=== PATIENT | male | born 1935 | race Caucasian/White ===

== ENCOUNTER → 2016-10-31 | Outpatient (CLI) | payer MEDICARE, OTHER ==
[~2016-10-31] MED LIST: EZET10TA2 PO; HYDR-2551 PO; LEVO125T6 PO; LISI40TA PO; POTA10IN PO; SIMV-13 PO; TADA5TAB11 PO; TAMS0.4C36 PO; VER240ST PO
== END | disposition home or self-care (01) ==
LOC: Rad HDHVI 09:42
PROVIDERS: ATTEND Internal Medicine Cardiovascular Disease
DX: M47.897 Other spondylosis, lumbosacral region (principal); M47.896 Other spondylosis, lumbar region; M48.06 Spinal stenosis, lumbar region
CPT/HCPCS: 72131

== ENCOUNTER → 2017-11-04 | Outpatient (CLI) | payer MEDICARE, OTHER ==
[~2017-11-04] MED LIST changes: -EZET10TA2 PO; +EZET10TA6 PO; +IOHEXOL 350 MG/ML 100ML IJ ONE; -LEVO125T6 PO; +LEVO125T7 PO
[2017-11-04 10:05] VITALS: BP 157/82
[2017-11-04 10:52] VITALS: BP 155/79
[2017-11-04 12:11] LABS: Basophils # (auto) 0 uL; Basophils % (auto) 0.8 % (0.0-2.0); Eosinophils # (auto) 0.1 uL; Eosinophils % (auto) 1.2 % (0.0-7.0); Hematocrit 41.9 % (41.0-53.0); Hemoglobin 13.5 g/dL (13.5-17.5); Lymphocytes # (auto) 1.6 uL; Lymphocytes % (auto) 36.6 % (10.0-50.0); Mean Corpuscular Hemoglobin 27.9 pg (28.0-32.0); Mean Corpuscular Hgb Conc. 32.2 g/dL (32.0-36.0); Mean Corpuscular Volume 86.7 fL (80.0-100.0); Monocytes # (auto) 0.7 uL; Neutrophils % (auto) 46.4 % (37.0-80.0); Nucleated Red Blood Cells % 0.8 %; Platelet Count (auto) 198 10^3/uL (140-450); Red Blood Cells 4.83 10^6/uL (4.5-5.90); White Blood Cell 4.4 10^3/uL (4.4-10.8)
[2017-11-04 12:21] LABS: Potassium 3.4 mmol/L (3.5-5.1); Urine Blood Negative /uL (Negative); Urine Specific Gravity 1.044 (1.001-1.035)
[2017-11-04 12:22] LABS: Albumin 4.1 g/dL (3.4-5.0); BUN/Creatinine Ratio 10.7; Bilirubin, Direct 0.2 mg/dL (0-0.2); Bilirubin, Total 1.1 mg/dL (0.2-1.0); Calcium 8.9 mg/dL (8.5-10.1); Total Protein 8.6 g/dL (6.4-8.2)
== END | disposition home or self-care (01) ==
LOC: Rad HDHVI 09:55
PROVIDERS: ATTEND Internal Medicine Cardiovascular Disease
DX: I71.4 Abdominal aortic aneurysm, without rupture (principal); E78.00 Pure hypercholesterolemia, unspecified; D64.9 Anemia, unspecified; I10 Essential (primary) hypertension; E11.9 Type 2 diabetes mellitus without complications; E03.9 Hypothyroidism, unspecified; R53.81 Other malaise; R97.20 Elevated prostate specific antigen [PSA]; K74.1 Hepatic sclerosis
CPT/HCPCS: 36415; 74175; 80048; 80061; 80076; 81003; 82565; 83036; 84153; 84403; 84443; 85025; 96374; G0463; Q9967

== ENCOUNTER → 2017-11-11 | Outpatient (CLI) | payer MEDICARE, OTHER ==
[~2017-11-11] MED LIST changes: -IOHEXOL 350 MG/ML 100ML IJ ONE
== END | disposition home or self-care (01) ==
LOC: Rad HDHVI 14:49
PROVIDERS: ATTEND Internal Medicine Cardiovascular Disease
DX: I07.1 Rheumatic tricuspid insufficiency (principal); I10 Essential (primary) hypertension; E78.00 Pure hypercholesterolemia, unspecified
CPT/HCPCS: 93306

== ENCOUNTER → 2017-11-30 | Outpatient (CLI) | payer MEDICARE, OTHER ==
[~2017-11-30] VITALS: Ht 172.7 cm; Wt 83.5 kg
== END | disposition home or self-care (01) ==
LOC: Rad HDHVI 13:24
PROVIDERS: ATTEND Internal Medicine Cardiovascular Disease
DX: I10 Essential (primary) hypertension (principal); I71.4 Abdominal aortic aneurysm, without rupture; R00.2 Palpitations
CPT/HCPCS: 78452; 93017; 96374; A9500

== ENCOUNTER → 2017-12-25 | Outpatient (CLI) | payer MEDICARE, OTHER ==
[~2017-12-25] MED LIST changes: +ASPI81TA27 PO; +CLOP75TA28 PO; +LEVO125C PO
[2017-12-25 09:00] VITALS: BP 141/76
[2017-12-25 09:35] VITALS: BP 151/78
[2017-12-25 12:24] LABS: Basophils # (auto) 0 uL; Basophils % (auto) 0.8 % (0.0-2.0); Eosinophils # (auto) 0.3 uL; Eosinophils % (auto) 6.3 % (0.0-7.0); Hematocrit 37.3 % (41.0-53.0); Hemoglobin 12.1 g/dL (13.5-17.5); Lymphocytes # (auto) 2.1 uL; Lymphocytes % (auto) 38.1 % (10.0-50.0); Mean Corpuscular Hemoglobin 27.9 pg (28.0-32.0); Mean Corpuscular Hgb Conc. 32.6 g/dL (32.0-36.0); Mean Corpuscular Volume 85.7 fL (80.0-100.0); Monocytes # (auto) 0.7 uL; Monocytes % (auto) 12.6 % (0.0-12.0); Neutrophils # (auto) 2.3 uL; Neutrophils % (auto) 42.2 % (37.0-80.0); Nucleated Red Blood Cells % 0.3 %; Platelet Count (auto) 204 10^3/uL (140-450); Red Blood Cells 4.35 10^6/uL (4.5-5.90); Red Cell Distribution Width 14.6 % (11.8-14.3); White Blood Cell 5.5 10^3/uL (4.4-10.8)
[2017-12-25 12:39] LABS: BUN/Creatinine Ratio 8.7; Calcium 8.5 mg/dL (8.5-10.1); Potassium 3.4 mmol/L (3.5-5.1)
[2017-12-25 12:40] LABS: INR 1.01 (0.9-1.15); Partial Thromboplastin Time 25.9 sec (22.64-33.71)
== END | disposition home or self-care (01) ==
LOC: Rad HDHVI 08:48
PROVIDERS: ATTEND Internal Medicine Cardiovascular Disease
DX: Z01.818 Encounter for other preprocedural examination (principal); I10 Essential (primary) hypertension; R79.1 Abnormal coagulation profile; D64.9 Anemia, unspecified; R00.2 Palpitations; R53.81 Other malaise; E78.00 Pure hypercholesterolemia, unspecified
CPT/HCPCS: 36415; 71046; 80048; 85025; 85610; 85730; 93005; G0463

== ENCOUNTER → 2018-02-17 | Outpatient (CLI) | payer MEDICARE, BC ==
[~2018-02-17] MED LIST changes: -HYDR-2551 PO; -LEVO125T7 PO
[2018-02-17 16:06] LABS: Basophils # (auto) 0.1 uL; Eosinophils # (auto) 0.1 uL; Eosinophils % (auto) 0.5 % (0.0-7.0); Lymphocytes # (auto) 2.7 uL; Monocytes # (auto) 1.2 uL
[2018-02-17 16:09] LABS: Basophils % (auto) 0.5 % (0.0-2.0); Hematocrit 22.9 % (41.0-53.0); Hemoglobin 7.5 g/dL (13.5-17.5); Lymphocytes % (auto) 19.7 % (10.0-50.0); Mean Corpuscular Hemoglobin 26.5 pg (28.0-32.0); Mean Corpuscular Hgb Conc. 32.6 g/dL (32.0-36.0); Mean Corpuscular Volume 81.2 fL (80.0-100.0); Neutrophils # (auto) 9.5 uL; Neutrophils % (auto) 70.3 % (37.0-80.0); Platelet Count (auto) 483 10^3/uL (140-450); Red Blood Cells 2.82 10^6/uL (4.5-5.90); Red Cell Distribution Width 15.6 % (11.8-14.3); White Blood Cell 13.5 10^3/uL (4.4-10.8)
[2018-02-17 16:13] LABS: Albumin 2.4 g/dL (3.4-5.0); BUN/Creatinine Ratio 13.1; Bilirubin, Total 0.5 mg/dL (0.2-1.0); Calcium 8.7 mg/dL (8.5-10.1); Potassium 4.4 mmol/L (3.5-5.1); Total Protein 8.1 g/dL (6.4-8.2)
== END | disposition home or self-care (01) ==
LOC: LAB 13:28
PROVIDERS: ATTEND Internal Medicine Cardiovascular Disease
DX: I10 Essential (primary) hypertension (principal); I25.10 Atherosclerotic heart disease of native coronary artery without angina pectoris; E78.00 Pure hypercholesterolemia, unspecified; E03.9 Hypothyroidism, unspecified; E11.9 Type 2 diabetes mellitus without complications; E78.5 Hyperlipidemia, unspecified; D64.9 Anemia, unspecified
CPT/HCPCS: 36415; 80053; 85025

== ENCOUNTER 2018-04-15 06:38 | Day surgery (SDC) | payer MEDICARE, OTHER ==
[2018-04-15] VITALS (9 sets, daily range): BP systolic 134–149; BP diastolic 76–86
== END 2018-04-15 13:20 | disposition home or self-care (01) ==
LOC: CATH 06:38
PROVIDERS: ATTEND Internal Medicine Cardiovascular Disease
DX: D64.9 Anemia, unspecified (principal); J98.8 Other specified respiratory disorders; J18.9 Pneumonia, unspecified organism; Z98.890 Other specified postprocedural states
CPT/HCPCS: 36430; 86850; 86900; 86901; 86920; J7040; P9016

== ENCOUNTER → 2018-04-26 | Outpatient (CLI) | payer MEDICARE, BC ==
[~2018-04-26] VITALS: Ht 167.6 cm; Wt 77.1 kg
== END | disposition home or self-care (01) ==
LOC: Rad HDHVI 09:17
PROVIDERS: ATTEND Internal Medicine Cardiovascular Disease
DX: I34.0 Nonrheumatic mitral (valve) insufficiency (principal); I25.5 Ischemic cardiomyopathy; I51.7 Cardiomegaly; I20.9 Angina pectoris, unspecified; E11.9 Type 2 diabetes mellitus without complications; I10 Essential (primary) hypertension; E03.9 Hypothyroidism, unspecified; E78.5 Hyperlipidemia, unspecified
CPT/HCPCS: 78452; 93017; 93306; 96374; A9500

== ENCOUNTER → 2018-05-05 | Outpatient (CLI) | payer MEDICARE, BC ==
[2018-05-05 16:22] LABS: Basophils # (auto) 0.1 uL; Eosinophils # (auto) 0 uL; Eosinophils % (auto) 0.6 % (0.0-7.0); Monocytes # (auto) 0.7 uL; Neutrophils # (auto) 4.6 uL; Nucleated Red Blood Cells % 0.4 %; White Blood Cell 7.4 10^3/uL (4.4-10.8)
[2018-05-05 16:24] LABS: Basophils % (auto) 0.8 % (0.0-2.0); Hematocrit 23.4 % (41.0-53.0); Hemoglobin 7.6 g/dL (13.5-17.5); Lymphocytes % (auto) 27.1 % (10.0-50.0); Mean Corpuscular Hemoglobin 28.3 pg (28.0-32.0); Mean Corpuscular Hgb Conc. 32.7 g/dL (32.0-36.0); Mean Corpuscular Volume 86.7 fL (80.0-100.0); Monocytes % (auto) 9.3 % (0.0-12.0); Neutrophils % (auto) 62.2 % (37.0-80.0); Platelet Count (auto) 310 10^3/uL (140-450); Red Cell Distribution Width 18.6 % (11.8-14.3)
== END | disposition home or self-care (01) ==
LOC: LAB 12:28
PROVIDERS: ATTEND Internal Medicine Cardiovascular Disease
DX: D64.9 Anemia, unspecified (principal); Z79.82 Long term (current) use of aspirin; Z79.899 Other long term (current) drug therapy
CPT/HCPCS: 36415; 85025

== ENCOUNTER → 2018-06-02 | Outpatient (CLI) | payer MEDICARE, BC ==
[2018-06-03 12:25] LABS: Basophils # (auto) 0.1 uL; Lymphocytes # (auto) 2.5 uL
[2018-06-03 12:28] LABS: Basophils % (auto) 1.3 % (0.0-2.0); Eosinophils # (auto) 0.3 uL; Eosinophils % (auto) 3.1 % (0.0-7.0); Lymphocytes % (auto) 29.4 % (10.0-50.0); Mean Corpuscular Hemoglobin 27.7 pg (28.0-32.0); Mean Corpuscular Hgb Conc. 32.2 g/dL (32.0-36.0); Monocytes # (auto) 0.8 uL; Monocytes % (auto) 8.9 % (0.0-12.0); Neutrophils # (auto) 4.9 uL; Neutrophils % (auto) 57.3 % (37.0-80.0); Nucleated Red Blood Cells % 0.4 %; Platelet Count (auto) 345 10^3/uL (140-450); Red Blood Cells 2.44 10^6/uL (4.5-5.90); Red Cell Distribution Width 17.6 % (11.8-14.3); White Blood Cell 8.6 10^3/uL (4.4-10.8)
[2018-06-03 12:37] LABS: BUN/Creatinine Ratio 7.5; Calcium 8.1 mg/dL (8.5-10.1); Potassium 3.9 mmol/L (3.5-5.1)
[2018-06-03 14:29] LABS: Hemoglobin 6.8 g/dL (13.5-17.5)
== END | disposition home or self-care (01) ==
LOC: LAB 15:40
PROVIDERS: ATTEND Internal Medicine Cardiovascular Disease
DX: D64.9 Anemia, unspecified (principal); I10 Essential (primary) hypertension
CPT/HCPCS: 36415; 80048; 85025

== ENCOUNTER 2018-06-04 06:58 | Day surgery (SDC) | payer MEDICARE, BC ==
[~2018-06-04] VITALS: Ht 172.7 cm; Wt 77.1 kg
[2018-06-04] VITALS (8 sets, daily range): BP systolic 115–151; BP diastolic 69–92
== END 2018-06-04 15:20 | disposition home or self-care (01) ==
LOC: CATH 06:58
PROVIDERS: ATTEND Internal Medicine Cardiovascular Disease
DX: D64.9 Anemia, unspecified (principal); J18.9 Pneumonia, unspecified organism
CPT/HCPCS: 36430; 86850; 86900; 86901; 86920; J7040; P9016

== ENCOUNTER → 2018-06-15 | Day surgery (SDC) | payer MEDICARE, OTHER ==
[2018-06-15 08:26] LABS: Basophils # (auto) 0.1 uL; Eosinophils # (auto) 0.1 uL
[2018-06-15 08:30] LABS: Basophils % (auto) 1.3 % (0.0-2.0); Eosinophils % (auto) 1.6 % (0.0-7.0); Hematocrit 26.1 % (41.0-53.0); Hemoglobin 8.4 g/dL (13.5-17.5); Lymphocytes # (auto) 2.3 uL; Lymphocytes % (auto) 31.7 % (10.0-50.0); Mean Corpuscular Hemoglobin 28.8 pg (28.0-32.0); Mean Corpuscular Volume 89.8 fL (80.0-100.0); Monocytes # (auto) 0.8 uL; Monocytes % (auto) 11.1 % (0.0-12.0); Neutrophils # (auto) 3.9 uL; Neutrophils % (auto) 54.3 % (37.0-80.0); Nucleated Red Blood Cells % 0.2 %; Platelet Count (auto) 272 10^3/uL (140-450); Red Blood Cells 2.91 10^6/uL (4.5-5.90); Red Cell Distribution Width 17.2 % (11.8-14.3); White Blood Cell 7.2 10^3/uL (4.4-10.8)
== END | disposition home or self-care (01) ==
LOC: CATH 07:02
PROVIDERS: ATTEND Internal Medicine Cardiovascular Disease
DX: D64.9 Anemia, unspecified (principal); J18.9 Pneumonia, unspecified organism
CPT/HCPCS: 36415; 36430; 85025; 86850; 86900; 86901

== ENCOUNTER → 2018-07-19 | Outpatient (CLI) | payer MEDICARE, OTHER ==
[2018-07-19 12:08] LABS: Basophils # (auto) 0.1 uL; Basophils % (auto) 0.8 % (0.0-2.0); Eosinophils # (auto) 0.1 uL; Eosinophils % (auto) 1.6 % (0.0-7.0); Hematocrit 27.3 % (41.0-53.0); Hemoglobin 8.5 g/dL (13.5-17.5); Lymphocytes # (auto) 2.8 uL; Mean Corpuscular Hemoglobin 27.1 pg (28.0-32.0); Mean Corpuscular Hgb Conc. 31.1 g/dL (32.0-36.0); Mean Corpuscular Volume 87.1 fL (80.0-100.0); Monocytes # (auto) 0.5 uL; Monocytes % (auto) 7.3 % (0.0-12.0); Neutrophils # (auto) 3.2 uL; Neutrophils % (auto) 48.3 % (37.0-80.0); Platelet Count (auto) 342 10^3/uL (140-450); Red Blood Cells 3.13 10^6/uL (4.5-5.90); Red Cell Distribution Width 17.3 % (11.8-14.3); White Blood Cell 6.6 10^3/uL (4.4-10.8)
== END | disposition home or self-care (01) ==
LOC: LAB 08:25
PROVIDERS: ATTEND Internal Medicine Cardiovascular Disease
DX: D64.9 Anemia, unspecified (principal); D72.818 Other decreased white blood cell count
CPT/HCPCS: 36415; 85025; 85045

== ENCOUNTER 2018-09-13 07:01 | Day surgery (SDC) | payer MEDICARE, OTHER ==
[2018-09-13] VITALS (8 sets, daily range): BP systolic 123–139; BP diastolic 77–84
== END 2018-09-13 14:30 | disposition home or self-care (01) ==
LOC: CATH 07:01
PROVIDERS: ATTEND Internal Medicine Cardiovascular Disease
DX: D64.9 Anemia, unspecified (principal)
CPT/HCPCS: 36430; 86850; 86900; 86901; 86920; J7030; P9016

== ENCOUNTER → 2018-11-29 | Outpatient (CLI) | payer MEDICARE, OTHER ==
[2018-11-29 12:13] LABS: Basophils # (auto) 0 uL; Eosinophils # (auto) 0.1 uL; Nucleated Red Blood Cells % 0.1 %
[2018-11-29 12:16] LABS: Basophils % (auto) 0.5 % (0.0-2.0); Eosinophils % (auto) 1.8 % (0.0-7.0); Hematocrit 32.8 % (41.0-53.0); Hemoglobin 10.4 g/dL (13.5-17.5); Lymphocytes # (auto) 1.8 uL; Lymphocytes % (auto) 29.5 % (10.0-50.0); Mean Corpuscular Hgb Conc. 31.6 g/dL (32.0-36.0); Mean Corpuscular Volume 85.4 fL (80.0-100.0); Monocytes # (auto) 0.9 uL; Monocytes % (auto) 14.5 % (0.0-12.0); Neutrophils # (auto) 3.3 uL; Neutrophils % (auto) 53.7 % (37.0-80.0); Platelet Count (auto) 282 10^3/uL (140-450); Red Blood Cells 3.85 10^6/uL (4.5-5.90); Red Cell Distribution Width 16.7 % (11.8-14.3); White Blood Cell 6.1 10^3/uL (4.4-10.8)
[2018-11-29 12:31] LABS: Potassium 3.7 mmol/L (3.5-5.1)
[2018-11-29 12:40] LABS: BUN/Creatinine Ratio 10.8; Calcium 8.5 mg/dL (8.5-10.1)
== END | disposition home or self-care (01) ==
LOC: LAB 10:22
PROVIDERS: ATTEND Internal Medicine Cardiovascular Disease
DX: E03.9 Hypothyroidism, unspecified (principal); D64.9 Anemia, unspecified; I10 Essential (primary) hypertension
CPT/HCPCS: 36415; 80048; 84443; 85025

== ENCOUNTER → 2019-02-01 | Outpatient (CLI) | payer MEDICARE, BC ==
[2019-02-01 09:29] VITALS: BP 122/71
[2019-02-01 09:45] VITALS: BP 123/65
--- NOTE | 2019-02-01 09:45 | NUR ---
PRE-OP FOR LEFT AND RIGHT HEART CATH FOR 02/03/19. Pre-Op Discharge Summary: See e-MAR for any medications given for this visit. Pre-op orders received and carried out per MD of EKG, LABS and chest xrays. Patient given a copy of EKG with instructions to go to [facility] out patient for further follow up care.
[2019-02-01 11:54] LABS: Basophils # (auto) 0.1 uL; Eosinophils # (auto) 0.2 uL; Hemoglobin 11.4 g/dL (13.5-17.5); Lymphocytes # (auto) 1.5 uL; Monocytes # (auto) 0.8 uL; Neutrophils # (auto) 4.2 uL; Nucleated Red Blood Cells % 0.1 %; White Blood Cell 6.8 10^3/uL (4.4-10.8)
[2019-02-01 11:56] LABS: Basophils % (auto) 1.2 % (0.0-2.0); Eosinophils % (auto) 2.7 % (0.0-7.0); Hematocrit 36.3 % (41.0-53.0); Lymphocytes % (auto) 21.7 % (10.0-50.0); Mean Corpuscular Hemoglobin 25.6 pg (28.0-32.0); Mean Corpuscular Hgb Conc. 31.4 g/dL (32.0-36.0); Mean Corpuscular Volume 81.6 fL (80.0-100.0); Monocytes % (auto) 12.2 % (0.0-12.0); Neutrophils % (auto) 62.2 % (37.0-80.0); Platelet Count (auto) 300 10^3/uL (140-450); Red Blood Cells 4.45 10^6/uL (4.5-5.90); Red Cell Distribution Width 17.2 % (11.8-14.3)
[2019-02-01 12:58] LABS: Potassium 3.2 mmol/L (3.5-5.1)
[2019-02-01 13:07] LABS: BUN/Creatinine Ratio 13.9; Calcium 8.9 mg/dL (8.5-10.1)
[2019-02-01 13:27] LABS: INR 1.02 (0.9-1.15); Partial Thromboplastin Time 28.5 sec (23.64-32.05)
== END | disposition home or self-care (01) ==
LOC: Rad HDHVI 09:08
PROVIDERS: ATTEND Internal Medicine Cardiovascular Disease
DX: Z01.812 Encounter for preprocedural laboratory examination (principal); I70.0 Atherosclerosis of aorta; D64.9 Anemia, unspecified; R79.1 Abnormal coagulation profile; I11.0 Hypertensive heart disease with heart failure; I50.9 Heart failure, unspecified; R06.02 Shortness of breath; R53.83 Other fatigue
CPT/HCPCS: 36415; 71046; 80048; 85025; 85610; 85730; 93005; G0463

== ENCOUNTER → 2019-02-28 | Outpatient (CLI) | payer MEDICARE, BC ==
[~2019-02-28] MED LIST changes: -CLOP75TA28 PO; +DICL-176 PO; +HYDR25TA4 PO; -LEVO125C PO; +LEVO150T10 PO; -POTA10IN PO; +POTA10TA51 PO; +RIVA10TA PO; -TAMS0.4C36 PO
== END | disposition home or self-care (01) ==
LOC: Rad HDHVI 08:49
PROVIDERS: ATTEND Internal Medicine Cardiovascular Disease
DX: I08.8 Other rheumatic multiple valve diseases (principal); I25.10 Atherosclerotic heart disease of native coronary artery without angina pectoris; I42.1 Obstructive hypertrophic cardiomyopathy; I11.0 Hypertensive heart disease with heart failure; I50.33 Acute on chronic diastolic (congestive) heart failure
CPT/HCPCS: 93306

== ENCOUNTER → 2019-09-28 | Outpatient (CLI) | payer MEDICARE, BC ==
[~2019-09-28] MED LIST changes: +ASPI-404 PO; -ASPI81TA27 PO; +COLC1CAP PO; +EZET10TA22 PO; -EZET10TA6 PO; +FERR-20 PO; +PANT40TA2 PO
== END | disposition home or self-care (01) ==
LOC: Rad HDHVI 12:01
PROVIDERS: ATTEND Internal Medicine Cardiovascular Disease
DX: M51.26 Other intervertebral disc displacement, lumbar region (principal); M48.061 Spinal stenosis, lumbar region without neurogenic claudication; M25.78 Osteophyte, vertebrae; M12.88 Other specific arthropathies, not elsewhere classified, other specified site
CPT/HCPCS: 72131

== ENCOUNTER → 2020-03-14 | Outpatient (CLI) | payer MEDICARE, BC ==
[2020-03-14 09:20] LABS: Basophils # (auto) 0.1 10 ^3/uL (0-0.2); Eosinophils # (auto) 0.5 10 ^3/uL (0-0.8); Hemoglobin 12.5 g/dL (13.5-17.5); Lymphocytes # (auto) 2.1 10 ^3/uL (0.4-5.4); Nucleated Red Blood Cells % 0.1 %; White Blood Cell 7.5 10^3/uL (4.4-10.8)
[2020-03-14 09:23] LABS: Basophils % (auto) 1.3 % (0.0-2.0); Eosinophils % (auto) 6.5 % (0.0-7.0); Mean Corpuscular Hemoglobin 25.9 pg (28.0-32.0); Mean Corpuscular Hgb Conc. 32.1 g/dL (32.0-36.0); Mean Corpuscular Volume 80.6 fL (80.0-100.0); Monocytes # (auto) 0.8 10 ^3/uL (0-1.3); Monocytes % (auto) 10.5 % (0.0-12.0); Neutrophils % (auto) 53.7 % (37.0-80.0); Platelet Count (auto) 283 10^3/uL (140-450); Red Blood Cells 4.84 10^6/uL (4.5-5.90)
[2020-03-14 09:54] LABS: Albumin 3.7 g/dL (3.4-5.0); BUN/Creatinine Ratio 20.2; Bilirubin, Direct 0.2 mg/dL (0-0.2); Bilirubin, Total 0.6 mg/dL (0.2-1.0); Calcium 9.3 mg/dL (8.5-10.1); Total Protein 9.1 g/dL (6.4-8.2)
== END | disposition home or self-care (01) ==
LOC: LAB 08:55
PROVIDERS: ATTEND Internal Medicine Cardiovascular Disease
DX: C61 Malignant neoplasm of prostate (principal); E03.9 Hypothyroidism, unspecified; K90.9 Intestinal malabsorption, unspecified; E29.1 Testicular hypofunction; N39.0 Urinary tract infection, site not specified; D51.9 Vitamin B12 deficiency anemia, unspecified; Z00.00 Encounter for general adult medical examination without abnormal findings; Z79.899 Other long term (current) drug therapy
CPT/HCPCS: 36415; 80048; 80061; 80076; 82306; 83036; 84153; 84443; 85025

== ENCOUNTER → 2020-03-15 | Outpatient (CLI) | payer MEDICARE, BC ==
[~2020-03-15] MED LIST changes: -ASPI-404 PO; +ASPI-543 PO; -LISI40TA PO; +LISI40TA11 PO
== END | disposition home or self-care (01) ==
LOC: Rad HDHVI 09:55
PROVIDERS: ATTEND Internal Medicine Cardiovascular Disease
DX: I08.3 Combined rheumatic disorders of mitral, aortic and tricuspid valves (principal); J44.9 Chronic obstructive pulmonary disease, unspecified
CPT/HCPCS: 93306

== ENCOUNTER 2020-07-22 02:15 | Inpatient (IN) | payer MEDICARE, BC ==
[~2020-07-22] VITALS: Ht 170.2 cm; Wt 70.1 kg
[2020-07-22 03:59] LABS: Basophils # (auto) 0 10 ^3/uL (0-0.2); Basophils % (auto) 0.3 % (0.0-2.0); Eosinophils # (auto) 0 10 ^3/uL (0-0.8); Eosinophils % (auto) 0.2 % (0.0-7.0); Lymphocytes # (auto) 2.2 10 ^3/uL (0.4-5.4); Monocytes # (auto) 1.4 10 ^3/uL (0-1.3)
[2020-07-22 04:01] LABS: Hematocrit 38.3 % (41.0-53.0); Hemoglobin 12.4 g/dL (13.5-17.5); Lymphocytes % (auto) 22.9 % (10.0-50.0); Mean Corpuscular Hemoglobin 25.1 pg (28.0-32.0); Mean Corpuscular Hgb Conc. 32.4 g/dL (32.0-36.0); Mean Corpuscular Volume 77.6 fL (80.0-100.0); Monocytes % (auto) 14.9 % (0.0-12.0); Neutrophils # (auto) 5.8 10 ^3/uL (1.6-8.6); Neutrophils % (auto) 61.7 % (37.0-80.0); Nucleated Red Blood Cells % 0.2 %; Platelet Count (auto) 262 10^3/uL (140-450); Red Blood Cells 4.94 10^6/uL (4.5-5.90); White Blood Cell 9.4 10^3/uL (4.4-10.8)
[2020-07-22] MEDS ORDERED: cefTRIAXone 1GM/50ML D5W 50 ML IV ONE (04:15)
[2020-07-22] MEDS ORDERED: methylPREDNISolone SOD SUCC 125 MG/2 ML VL IV ONE (04:15)
[2020-07-22 04:25] LABS: Albumin 3.1 g/dL (3.4-5.0); BUN/Creatinine Ratio 23.8; Potassium 3.7 mmol/L (3.5-5.1)
[2020-07-22 04:26] LABS: INR 1.1 (0.9-1.15); Partial Thromboplastin Time 26.4 sec (23.0-31.2)
[2020-07-22 04:36] LABS: Bilirubin, Total 0.6 mg/dL (0.2-1.0); Total Protein 8.7 g/dL (6.4-8.2)
[2020-07-22] MEDS ORDERED: ASPirin 81 mg TAB PO ONE ×2 (06:15)
[2020-07-22] MEDS ORDERED: NITROGLYCERIN 0.4 MG SL TAB SL PRN (07:00)
[2020-07-22] MEDS ORDERED: ACETAMINOPHEN 500 MG TAB PO PRN (07:00)
[2020-07-22] MEDS ORDERED: ONDANSETRON HCL 4 MG/2 ML VIAL IV PRN (07:00)
[2020-07-22] MEDS ORDERED: DOCUSATE SOD 100 MG CAP PO PRN (07:00)
[2020-07-22] MEDS ORDERED: MORPHINE SULF INJ 2 MG/ML SYRINGE 1ML IV PRN (07:00)
[2020-07-22 08:17] LABS: Magnesium 2.5 mg/dL (1.6-2.6)
[2020-07-22] MEDS: DexAMETHasone SOD PHOS 10MG/1ML VIAL INJ IV SCH (10:25)
[2020-07-22] MEDS: PANTOPRAZOLE 40 MG/10 ML VIAL INJ IV SCH (10:26)
[2020-07-22] MEDS: MULTIPLE VITAMIN TAB PO SCH (10:26)
[2020-07-22] MEDS: ZINC SULFATE 220mg CAP or TAB PO SCH (10:27)
[2020-07-22] MEDS: ASCORBIC ACID 1,000 MG TAB PO SCH (10:27)
[2020-07-22] MEDS: ASPirin 81 mg TAB PO SCH (10:27)
[2020-07-22] MEDS: CHOLECALCIFEROL (VITD3) 2,000 UNIT CAP PO SCH (10:27)
[2020-07-22] MEDS: ENOXAPARIN SOD 40 MG/0.4 ML SYRINGE SC SCH (10:28)
[2020-07-22] MEDS: DOXYCYCLINE 100MG/250ML 250 ML IV SCH ×2 (10:36→22:48)
[2020-07-22] MEDS ORDERED: IOHEXOL 350 MG/ML 100ML IJ ONE (13:39)
[2020-07-22] MEDS: BUDESONIDE (INHALATION) 180 MCG IH IN SCH ×2 (15:00→22:12)
[2020-07-22] MEDS: ALBUTEROL SULF HFA 90MCG INH 200DOSE IN SCH ×2 (15:00→22:12)
[2020-07-22] MEDS: SODIUM CHLOR 0.9% PF (SALINE LOCK) 10ML VIAL/SYR IV SCH ×2 (15:04→22:48)
[2020-07-22 16:43] VITALS: BP 139/79
[2020-07-23] MEDS: SODIUM CHLOR 0.9% PF (SALINE LOCK) 10ML VIAL/SYR IV SCH ×3 (07:13→21:30)
[2020-07-23] MEDS: ASCORBIC ACID 1,000 MG TAB PO SCH (07:50)
[2020-07-23] MEDS: ASPirin 81 mg TAB PO SCH (07:50)
[2020-07-23] MEDS: DexAMETHasone SOD PHOS 10MG/1ML VIAL INJ IV SCH (07:50)
[2020-07-23] MEDS: PANTOPRAZOLE 40 MG/10 ML VIAL INJ IV SCH (07:50)
[2020-07-23] MEDS: CHOLECALCIFEROL (VITD3) 2,000 UNIT CAP PO SCH (07:50)
[2020-07-23] MEDS: MULTIPLE VITAMIN TAB PO SCH (07:50)
[2020-07-23] MEDS: ZINC SULFATE 220mg CAP or TAB PO SCH (07:50)
[2020-07-23] MEDS: ENOXAPARIN SOD 40 MG/0.4 ML SYRINGE SC SCH (07:50)
[2020-07-23] MEDS: DOXYCYCLINE 100MG/250ML 250 ML IV SCH ×2 (07:51→21:30)
[2020-07-23 07:59] LABS: Basophils # (auto) 0 10 ^3/uL (0-0.2); Eosinophils # (auto) 0 10 ^3/uL (0-0.8); Hemoglobin 12.1 g/dL (13.5-17.5); Mean Corpuscular Hgb Conc. 31.4 g/dL (32.0-36.0); Monocytes # (auto) 1.2 10 ^3/uL (0-1.3); Neutrophils # (auto) 6.5 10 ^3/uL (1.6-8.6); Nucleated Red Blood Cells % 0.1 %; White Blood Cell 9.1 10^3/uL (4.4-10.8)
[2020-07-23 08:01] LABS: Basophils % (auto) 0.2 % (0.0-2.0); Hematocrit 38.4 % (41.0-53.0); Lymphocytes # (auto) 1.3 10 ^3/uL (0.4-5.4); Lymphocytes % (auto) 14.7 % (10.0-50.0); Mean Corpuscular Hemoglobin 24.6 pg (28.0-32.0); Mean Corpuscular Volume 78.3 fL (80.0-100.0); Monocytes % (auto) 13.6 % (0.0-12.0); Neutrophils % (auto) 71.5 % (37.0-80.0); Platelet Count (auto) 253 10^3/uL (140-450)
[2020-07-23 08:13] LABS: Albumin 2.7 g/dL (3.4-5.0); BUN/Creatinine Ratio 25.2; Calcium 8.9 mg/dL (8.5-10.1); Potassium 4.1 mmol/L (3.5-5.1)
[2020-07-23 08:16] LABS: Bilirubin, Total 0.5 mg/dL (0.2-1.0); Total Protein 8.2 g/dL (6.4-8.2)
[2020-07-23] MEDS: ALBUTEROL SULF HFA 90MCG INH 200DOSE IN SCH ×3 (09:05→22:29)
[2020-07-23] MEDS: BUDESONIDE (INHALATION) 180 MCG IH IN SCH ×2 (09:07→22:29)
[2020-07-23] MEDS ORDERED: PATIENTS OWN MEDICATION (REMDESIVIR 100 MG) IV SCH (10:00)
[2020-07-23] MEDS ORDERED: REMDESIVIR 200 MG in NS 210ml LOADING DOSE ADULT IV ONE (10:30)
[2020-07-24 05:30] VITALS: BP 145/73
[2020-07-24] MEDS: SODIUM CHLOR 0.9% PF (SALINE LOCK) 10ML VIAL/SYR IV SCH ×3 (06:42→21:56)
[2020-07-24] MEDS: BUDESONIDE (INHALATION) 180 MCG IH IN SCH ×2 (07:14→21:41)
[2020-07-24] MEDS: ALBUTEROL SULF HFA 90MCG INH 200DOSE IN SCH ×3 (07:15→21:41)
[2020-07-24 08:50] VITALS: BP 147/80
[2020-07-24] MEDS: PANTOPRAZOLE 40 MG/10 ML VIAL INJ IV SCH (09:16)
[2020-07-24] MEDS: DexAMETHasone SOD PHOS 10MG/1ML VIAL INJ IV SCH (09:16)
[2020-07-24] MEDS: ZINC SULFATE 220mg CAP or TAB PO SCH (09:17)
[2020-07-24] MEDS: ASPirin 81 mg TAB PO SCH (09:17)
[2020-07-24] MEDS: DOXYCYCLINE 100MG/250ML 250 ML IV SCH ×2 (09:17→21:56)
[2020-07-24] MEDS: MULTIPLE VITAMIN TAB PO SCH (09:18)
[2020-07-24] MEDS: ASCORBIC ACID 1,000 MG TAB PO SCH (09:18)
[2020-07-24] MEDS: CHOLECALCIFEROL (VITD3) 2,000 UNIT CAP PO SCH (09:18)
[2020-07-24] MEDS: ENOXAPARIN SOD 40 MG/0.4 ML SYRINGE SC SCH (09:19)
[2020-07-24] MEDS ORDERED: TIMO0.5S67 EACHEYE (11:44)
[2020-07-24] MEDS ORDERED: LATA0.0019 EACHEYE (11:44)
[2020-07-24 12:35] VITALS: BP 110/64
[2020-07-24 17:00] VITALS: BP 108/67
[2020-07-24] MEDS: REMDESIVIR 100mg in NS 230ml DAILYx4DAYS (NO VENT) IV SCH (17:20)
[2020-07-24] MEDS ORDERED: NIFE1TAB31 PO (20:31)
[2020-07-24] MEDS ORDERED: BENA40TA7 PO (20:31)
[2020-07-24] MEDS ORDERED: TAMS0.4C36 PO (20:31)
[2020-07-24 22:00] VITALS: BP 150/79
[2020-07-25 05:00] VITALS: BP 154/90
[2020-07-25] MEDS: ALBUTEROL SULF HFA 90MCG INH 200DOSE IN SCH ×2 (06:06→13:46)
[2020-07-25] MEDS: BUDESONIDE (INHALATION) 180 MCG IH IN SCH (06:06)
[2020-07-25] MEDS: SODIUM CHLOR 0.9% PF (SALINE LOCK) 10ML VIAL/SYR IV SCH ×2 (06:32→14:00)
[2020-07-25] MEDS ORDERED: cloNIDine HCL 0.1 MG TAB PO ONE (07:15)
[2020-07-25 09:00] VITALS: BP 128/72
[2020-07-25] MEDS ORDERED: cloNIDine HCL 0.1 MG TAB PO PRN (09:15)
[2020-07-25] MEDS: DexAMETHasone SOD PHOS 10MG/1ML VIAL INJ IV SCH (09:33)
[2020-07-25] MEDS: PANTOPRAZOLE 40 MG/10 ML VIAL INJ IV SCH (09:33)
[2020-07-25] MEDS: ASPirin 81 mg TAB PO SCH (09:34)
[2020-07-25] MEDS: MULTIPLE VITAMIN TAB PO SCH (09:34)
[2020-07-25] MEDS: ZINC SULFATE 220mg CAP or TAB PO SCH (09:34)
[2020-07-25] MEDS: DOXYCYCLINE 100MG/250ML 250 ML IV SCH (09:34)
[2020-07-25] MEDS: CHOLECALCIFEROL (VITD3) 2,000 UNIT CAP PO SCH (09:35)
[2020-07-25] MEDS: ASCORBIC ACID 1,000 MG TAB PO SCH (09:35)
[2020-07-25] MEDS: ENOXAPARIN SOD 40 MG/0.4 ML SYRINGE SC SCH (09:35)
[2020-07-25 13:00] VITALS: BP 143/85
[2020-07-25 15:06] VITALS: BP 143/85
[2020-07-25 17:00] VITALS: BP 133/76
[2020-07-25] MEDS: REMDESIVIR 100mg in NS 230ml DAILYx4DAYS (NO VENT) IV SCH (17:00)
== END 2020-07-25 17:35 | disposition home or self-care (01) | DRG 177 ==
LOC: ER 02:16 → TELE 02:17 → TELE-E-ADS 07-24 05:33 → TELE-EAST 07-24 19:06
PROVIDERS: ADMIT Nurse Practitioner Family; ATTEND Internal Medicine Cardiovascular Disease
PROC: XW033E5 Introduction of Remdesivir Anti-infective into Peripheral Vein, Percutaneous Approach, New Technology Group 5 (ICD-10-PCS; principal; 2020-07-23)
DX: U07.1 COVID-19 (principal); J12.89 Other viral pneumonia; J96.01 Acute respiratory failure with hypoxia; J44.0 Chronic obstructive pulmonary disease with (acute) lower respiratory infection; I50.32 Chronic diastolic (congestive) heart failure; E03.9 Hypothyroidism, unspecified; E78.5 Hyperlipidemia, unspecified; I25.10 Atherosclerotic heart disease of native coronary artery without angina pectoris; I11.0 Hypertensive heart disease with heart failure; Z98.61 Coronary angioplasty status
CPT/HCPCS: 36415; 71045; 71275; 80053; 80061; 83735; 83880; 84443; 84484; 85025; 85379; 85610; 85730; 87426; 94640; 96365; 96375; C9113; G0378; J0696; J1100; J3490

== ENCOUNTER 2020-08-14 05:11 | Inpatient (IN) | payer MEDICARE, OTHER ==
[~2020-08-14] VITALS: Ht 172.7 cm; Wt 70.0 kg
[~2020-08-14 05:11] MED LIST changes: +BENA40TA7 PO; +LATA0.0019 EACHEYE; +NIFE1TAB31 PO; +TAMS0.4C36 PO; +TIMO0.5S67 EACHEYE
[2020-08-14] MEDS ORDERED: ACETAMINOPHEN 500 MG TAB PO ONE ×2 (07:30→18:30)
[2020-08-14 09:33] LABS: Basophils # (auto) 0.1 10 ^3/uL (0-0.2); Basophils % (auto) 0.9 % (0.0-2.0); Eosinophils # (auto) 0 10 ^3/uL (0-0.8); Hemoglobin 9.8 g/dL (13.5-17.5)
[2020-08-14 09:34] LABS: Eosinophils % (auto) 0.1 % (0.0-7.0); Hematocrit 30.5 % (41.0-53.0); Lymphocytes # (auto) 1.1 10 ^3/uL (0.4-5.4); Lymphocytes % (auto) 8.4 % (10.0-50.0); Mean Corpuscular Hemoglobin 24.4 pg (28.0-32.0); Mean Corpuscular Hgb Conc. 32.1 g/dL (32.0-36.0); Mean Corpuscular Volume 75.9 fL (80.0-100.0); Monocytes # (auto) 1.2 10 ^3/uL (0-1.3); Monocytes % (auto) 9.4 % (0.0-12.0); Neutrophils # (auto) 10.4 10 ^3/uL (1.6-8.6); Neutrophils % (auto) 81.2 % (37.0-80.0); Platelet Count (auto) 328 10^3/uL (140-450); Red Blood Cells 4.01 10^6/uL (4.5-5.90); Red Cell Distribution Width 16.1 % (11.8-14.3); White Blood Cell 12.8 10^3/uL (4.4-10.8)
[2020-08-14 09:56] LABS: Albumin 2.4 g/dL (3.4-5.0); Calcium 8.3 mg/dL (8.5-10.1); Potassium 3.7 mmol/L (3.5-5.1)
[2020-08-14 10:03] LABS: BUN/Creatinine Ratio 13.3; Bilirubin, Total 0.5 mg/dL (0.2-1.0); Total Protein 7.3 g/dL (6.4-8.2)
[2020-08-14 10:25] LABS: INR 1.14 (0.9-1.15); Partial Thromboplastin Time 29.8 sec (23.0-31.2)
[2020-08-14] MEDS ORDERED: ENOXAPARIN SOD 80 MG/0.8ML SYRINGE SC ONE (10:45)
[2020-08-14] MEDS ORDERED: ASPirin 81 mg TAB PO ONE (10:45)
[2020-08-14] MEDS ORDERED: NITROGLYCERIN 0.4 MG SL TAB SL PRN (12:15)
[2020-08-14] MEDS ORDERED: MORPHINE SULF INJ 2 MG/ML SYRINGE 1ML IV PRN (12:15)
[2020-08-14] MEDS ORDERED: CHOLECALCIFEROL (VITD3) 2,000 UNIT CAP PO ONE (12:15)
[2020-08-14] MEDS ORDERED: AZITHROMYCIN 250 MG TAB PO ONE (12:15)
[2020-08-14] MEDS ORDERED: ASCORBIC ACID 500 MG TAB PO ONE (12:15)
[2020-08-14] MEDS ORDERED: MEGE40TA15 PO (13:57)
[2020-08-14] MEDS ORDERED: SIMV-13 PO (14:05)
[2020-08-14] MEDS ORDERED: METOPROLOL TARTRATE 50 MG TAB PO ONE (18:30)
[2020-08-14] MEDS: IPRATROPIUM BROM 0.5 MG/2.5ML INH SOL NEB SCH (21:15)
[2020-08-14] MEDS: ENOXAPARIN SOD 60 MG/0.6 ML SYRINGE SC SCH (22:00)
--- NOTE | 2020-08-15 04:45 | NUR ---
Telemetry admit from ER HUONG GRIJALVA admitted to Telemetry unit after SBAR received. Patient oriented to Linsey Ely RN primary RN, unit, room, bed, and unit policies regarding patient care and visiting hours. Patient now on continuous telemetry monitoring, tele box # 57 and telemetry reading on arrival to unit is SR. Patient weighed by bedscale and encouraged to call if they need something. All questions and concerns addressed, patient verbalized understanding. Bed in lowest position, call light within reach, will continue to monitor Note: []
[2020-08-15 05:00] VITALS: BP 94/54
[2020-08-15] MEDS: IPRATROPIUM BROM 0.5 MG/2.5ML INH SOL NEB SCH ×3 (06:00→23:33)
--- NOTE | 2020-08-15 10:45 | NUR ---
PATIENT REPORTS THAT HE WALKS TO BATHROOM INDEPENDENTLY WITHOUT SYMPTOMS. ATTEMPT P.T. TOMORROW.
[2020-08-15] MEDS: ZINC SULFATE 220mg CAP or TAB PO SCH (11:22)
[2020-08-15] MEDS: predniSONE 20 MG TAB PO SCH (11:22)
[2020-08-15] MEDS: AZITHROMYCIN 250 MG TAB PO SCH (11:23)
[2020-08-15] MEDS: ENOXAPARIN SOD 60 MG/0.6 ML SYRINGE SC SCH ×2 (11:25→21:38)
[2020-08-15 17:00] VITALS: BP 133/73
--- NOTE | 2020-08-15 19:35 | NUR ---
Opening Shift Note Assumed care of patient, awake and alert. No S/S of distress/SOB or pain. Instructed on POC and to call for assist PRN, patient verbalized understanding. Bed in safety position, call light within reach, will continue to monitor for changes Q1hr and PRN.
[2020-08-15 22:00] VITALS: BP 126/77
[2020-08-15 22:27] LABS: Urine Bacteria NONE SEEN /hpf (None Seen); Urine Blood 2+ /uL (Negative); Urine Specific Gravity 1.017 (1.001-1.035); Urine WBC 46 /hpf (0 - 3)
[2020-08-16 05:55] VITALS: BP 123/72
[2020-08-16] MEDS: IPRATROPIUM BROM 0.5 MG/2.5ML INH SOL NEB SCH ×3 (08:06→20:39)
--- NOTE | 2020-08-16 08:15 | NUR ---
Opening Shift Note Assumed care of patient, awake and alert. No S/S of distress/SOB or pain. Instructed on POC and to call for assist PRN. Patient educated on NPO status,patient verbalized understating. Awaiting call back from MD. Will continue to monitor for changes Q1hr and PRN.
[2020-08-16 08:30] VITALS: BP 117/69
[2020-08-16 09:00] VITALS: BP 117/69
--- NOTE | 2020-08-16 09:24 | NUR ---
Per labor gang supervisor nurse, patient may eat. Patient will not go have a procedure today. Patient aware.
[2020-08-16] MEDS: ZINC SULFATE 220mg CAP or TAB PO SCH (09:58)
[2020-08-16] MEDS: AZITHROMYCIN 250 MG TAB PO SCH (09:58)
[2020-08-16] MEDS: predniSONE 20 MG TAB PO SCH (09:58)
[2020-08-16] MEDS: ENOXAPARIN SOD 60 MG/0.6 ML SYRINGE SC SCH ×2 (09:59→21:20)
--- NOTE | 2020-08-16 10:20 | NUR ---
Spoke to patients daughter Rianna. Password confirmed. Daughter informed about patients poc.
[2020-08-16 11:56] LABS: Basophils # (auto) 0.1 10 ^3/uL (0-0.2); Eosinophils # (auto) 0 10 ^3/uL (0-0.8); White Blood Cell 7.9 10^3/uL (4.4-10.8)
[2020-08-16 11:57] LABS: Basophils % (auto) 1.3 % (0.0-2.0); Eosinophils % (auto) 0.4 % (0.0-7.0); Hematocrit 31.2 % (41.0-53.0); Hemoglobin 10.1 g/dL (13.5-17.5); Lymphocytes # (auto) 1.4 10 ^3/uL (0.4-5.4); Lymphocytes % (auto) 17.3 % (10.0-50.0); Mean Corpuscular Hemoglobin 24.3 pg (28.0-32.0); Mean Corpuscular Hgb Conc. 32.3 g/dL (32.0-36.0); Mean Corpuscular Volume 75.2 fL (80.0-100.0); Monocytes # (auto) 0.6 10 ^3/uL (0-1.3); Monocytes % (auto) 8.1 % (0.0-12.0); Neutrophils # (auto) 5.7 10 ^3/uL (1.6-8.6); Neutrophils % (auto) 72.9 % (37.0-80.0); Platelet Count (auto) 366 10^3/uL (140-450); Red Blood Cells 4.15 10^6/uL (4.5-5.90)
[2020-08-16 12:07] LABS: Albumin 2.2 g/dL (3.4-5.0); Calcium 8.8 mg/dL (8.5-10.1); Potassium 3.7 mmol/L (3.5-5.1)
[2020-08-16 12:10] LABS: BUN/Creatinine Ratio 16.5; Bilirubin, Total 0.3 mg/dL (0.2-1.0); Total Protein 7.2 g/dL (6.4-8.2)
[2020-08-16 13:00] VITALS: BP 124/70
[2020-08-16] MEDS: BUDESONIDE (INHALATION) 0.5 MG/2 ML NEB NEB SCH ×2 (14:25→20:39)
[2020-08-16 17:00] VITALS: BP 141/69
[2020-08-16 22:00] VITALS: BP 131/70
[2020-08-17] MEDS: IPRATROPIUM BROM 0.5 MG/2.5ML INH SOL NEB SCH ×2 (06:00→14:00)
[2020-08-17 06:11] VITALS: BP 133/72
--- NOTE | 2020-08-17 07:57 | NUR ---
Opening Shift Note Received report from hourly shift manager RN Rasheeda, Assumed care of patient, awake and alert. Patient on room air, No S/S of distress/SOB or pain. Bed in lowest position, call light within reach. Instructed on POC and to call for assist PRN, will continue to monitor for changes Q1hr and PRN.
[2020-08-17 09:00] VITALS: BP 153/83
[2020-08-17] MEDS: BUDESONIDE (INHALATION) 0.5 MG/2 ML NEB NEB SCH (10:00)
[2020-08-17] MEDS ORDERED: ENOXAPARIN SOD 60 MG/0.6 ML SYRINGE SC SCH (10:00)
[2020-08-17] MEDS: predniSONE 20 MG TAB PO SCH (10:09)
[2020-08-17] MEDS: ZINC SULFATE 220mg CAP or TAB PO SCH (10:09)
[2020-08-17] MEDS: AZITHROMYCIN 250 MG TAB PO SCH (10:09)
[2020-08-17] MEDS: ENOXAPARIN SOD 60 MG/0.6 ML SYRINGE SC SCH (10:10)
--- NOTE | 2020-08-17 10:16 | NUR ---
MD RUSHING PAGED PATIENTS BLOOD PRESSURE 153/83, MD RUSHING PAGED TO GET ORDER FOR BLOOD PRESSURE MEDICATION OR CONTINUE HOME MEDICATIONS. AWAITING CALL BACK.
[2020-08-17 13:00] VITALS: BP 136/85
--- NOTE | 2020-08-17 14:25 | NUR ---
Nutrition Assessment Notes Please refer to link for full assessment notes. Est Energy needs: 7955-1175 kcals (20-23 kcal/kgBW) Est Protein needs: 70-77 gms/day (1.0-1.1 gm/kgBW) Will continue to monitor and reassess prn. Addendum: 08/17/20 at [address] Amended: Links added.
--- NOTE | 2020-08-17 15:58 | NUR ---
plavix 75mg po medication called in to [facility] [place]ylocated at [phone]
--- NOTE | 2020-08-17 16:19 | NUR ---
Assessment Patient is a 85 year old male who is alert and oriented. Prior to admission patient lived home with his Berta and functioned independently. Patient informed me he is able to care for his own ADLs. Per patient he will return home to his prior living arrangements post discharge and family will transport him home. Patient has home oxygen. Patients PCP is Dr Persaud. Patient does not have any home health service and patient does not want any service at this time. Patient feels safe retuning home and has great family support. Informed patient he has a right to speak to a social economist regarding all care. Informed patient he has a right to participate in any and all discharge planning. Patient does not have a POA and advanced directive. I have offered patient information on POA and advanced directives. Patient verbalized understanding and agreed to discharge plan. Addendum: 08/17/20 at 1626 by KATI URIBE Amended: Links added.
[2020-08-17 17:00] VITALS: BP 149/78
[2020-08-17 17:16] VITALS: BP 157/96
--- NOTE | 2020-08-17 20:15 | NUR ---
Regular Discharge Please follow up with your primary care physician Dr Persaud. Patient discharged with all of his belonging and iv removed as well as telemetry box. Telemetry box was send down by day shift RN. Patient wheeled down via wheel chair with all of his belongings. Tolerated well. Discharge paper work already given to the patient.
== END 2020-08-17 20:15 | disposition home or self-care (01) | DRG 871 ==
LOC: ER 05:11 → EDBD 05:11 → TELE 05:12 → TELE-WESTW 08-15 03:19
PROVIDERS: ADMIT Internal Medicine Cardiovascular Disease; ATTEND Internal Medicine Cardiovascular Disease
DX: A41.9 Sepsis, unspecified organism (principal); U07.1 COVID-19; I21.4 Non-ST elevation (NSTEMI) myocardial infarction; J12.89 Other viral pneumonia; J96.00 Acute respiratory failure, unspecified whether with hypoxia or hypercapnia; E43 Unspecified severe protein-calorie malnutrition; D68.59 Other primary thrombophilia; J44.0 Chronic obstructive pulmonary disease with (acute) lower respiratory infection; D64.9 Anemia, unspecified; E78.5 Hyperlipidemia, unspecified; E03.9 Hypothyroidism, unspecified; I10 Essential (primary) hypertension; I25.10 Atherosclerotic heart disease of native coronary artery without angina pectoris; Z98.61 Coronary angioplasty status
CPT/HCPCS: 36415; 36600; 71045; 80053; 81001; 82805; 83880; 84484; 85025; 85379; 85610; 85730; 87426; 93005; 94640; 96372; G0378

== ENCOUNTER 2020-08-19 08:49 | Inpatient (IN) | payer MEDICARE, OTHER ==
[~2020-08-19] VITALS: Ht 170.2 cm; Wt 71.3 kg
[~2020-08-19 08:49] MED LIST changes: -LISI40TA11 PO; +MEGE40TA15 PO
[2020-08-19 12:13] LABS: Platelet Count (auto) 325 10^3/uL (140-450)
[2020-08-19 12:15] LABS: Hematocrit 29.5 % (41.0-53.0); Hemoglobin 9.7 g/dL (13.5-17.5); Mean Corpuscular Volume 75.7 fL (80.0-100.0); Red Cell Distribution Width 16.2 % (11.8-14.3); White Blood Cell 26.4 10^3/uL (4.4-10.8)
[2020-08-19 12:22] LABS: Basophils % (manual) 0 (0.0-2.0); Blast Cells 0; Eosinophils % (manual) 0 (0-7); Promyelocytes % 0; Reactive Lymphocytes 0
[2020-08-19 12:28] LABS: Albumin 2.2 g/dL (3.4-5.0); Calcium 8.4 mg/dL (8.5-10.1); Potassium 3.2 mmol/L (3.5-5.1)
[2020-08-19 12:31] LABS: Lactic Acid w/Reflex 5.8 mmol/L (0.4-2.0)
[2020-08-19 12:34] LABS: BUN/Creatinine Ratio 11.9; Bilirubin, Total 0.9 mg/dL (0.2-1.0); Total Protein 6.5 g/dL (6.4-8.2)
[2020-08-19 12:38] LABS: INR 1.17 (0.9-1.15); Partial Thromboplastin Time 26.4 sec (23.0-31.2)
[2020-08-19] MEDS ORDERED: cefTRIAXone 1GM/50ML D5W 50 ML IV ONE (13:00)
[2020-08-19 13:05] LABS: Band Neutrophils % (manual) 20; Lymphocytes % (manual) 2 (10.0-50.0); Metamyelocytes % 1; Monocytes % (manual) 2 (0-12); Myelocytes % 1
[2020-08-19] MEDS ORDERED: ASPirin 81 mg TAB PO ONE (13:15)
[2020-08-19] MEDS ORDERED: methylPREDNISolone SOD SUCC 125 MG/2 ML VL IV ONE (13:30)
[2020-08-19] MEDS ORDERED: ENOXAPARIN SOD 80 MG/0.8ML SYRINGE SC ONE (13:45)
[2020-08-19] MEDS ORDERED: MORPHINE SULF INJ 2 MG/ML SYRINGE 1ML IV PRN (14:45)
[2020-08-19] MEDS ORDERED: NITROGLYCERIN 0.4 MG SL TAB SL PRN (14:45)
[2020-08-19 17:16] LABS: Urine Bacteria FEW /hpf (None Seen); Urine Blood TRACE /uL (Negative); Urine Hyaline Cast MOD /lpf (0 - 2); Urine Mucus FEW (None Seen); Urine Specific Gravity 1.014 (1.001-1.035); Urine WBC 148 /hpf (0 - 3)
[2020-08-19] MEDS: TAMSULOSIN HYDROCHLORIDE 0.4 MG CAP PO SCH (20:23)
[2020-08-19] MEDS: ATORVASTATIN 20 MG TAB PO SCH (22:00)
[2020-08-19] MEDS: LATANOPROST 0.005 % OPTH(EYE) SOL 2.5ML EACHEYE SCH (22:00)
[2020-08-19] MEDS: TIMOLOL MAL 0.5% OPTH(EYE) SOL 5ML EACHEYE SCH (22:00)
[2020-08-19] MEDS: ALBUTEROL SULF 2.5 MG/0.5ML(0.5%) NEB SOLN NEB SCH (22:00)
--- NOTE | 2020-08-20 02:55 | NUR ---
Respiratory note: MED NEB TX TO HELD AT THIS TIME. R/O FOR COVID. PT IS NOT IN A NEGATIVE PRESSURE ROOM, NO ROMS AVAILABLE. PT IN NO RESPIRATORY DISTRESS, WILL CONTINUE TO MONITOR.
[2020-08-20] MEDS: ALBUTEROL SULF 2.5 MG/0.5ML(0.5%) NEB SOLN NEB SCH ×3 (02:57→22:34)
--- NOTE | 2020-08-20 06:40 | NUR ---
Respiratory note: HR 91, RR 16, SPO2 100% ON RA, BS DIMINISHED. PT STATES BREATHING FEELS GOOD AND DOES NOT NEED A BREATHING TX.
[2020-08-20] MEDS: LEVOTHYROXINE SODIUM 50 MCG TAB PO SCH (07:18)
[2020-08-20] MEDS ORDERED: HCTZ 25 MG TAB PO SCH (10:00)
[2020-08-20] MEDS: TIMOLOL MAL 0.5% OPTH(EYE) SOL 5ML EACHEYE SCH ×2 (10:47→22:18)
[2020-08-20] MEDS: ASPirin-EC 81 mg tab PO SCH (10:48)
[2020-08-20] MEDS: cefTRIAXone 1GM/50ML D5W 50 ML IV SCH (10:48)
[2020-08-20] MEDS: POTASSIUM CHL 10 Meq TABLET PO SCH (10:48)
[2020-08-20] MEDS: BENAZEPRIL HCL 10 MG TAB PO SCH (10:49)
[2020-08-20] MEDS: PANTOPRAZOLE 40 MG TAB PO SCH (10:50)
[2020-08-20] MEDS: Ezetimibe (Zetia) 10 MG TAB PO SCH (10:56)
[2020-08-20] MEDS ORDERED: LIDOCAINE 2%HCL (LOCAL ANESTH.) INJ 20ML MDV ONE (12:19)
[2020-08-20] MEDS: MEGESTROL ACETATE 20 MG TAB PO SCH (12:21)
[2020-08-20] MEDS ORDERED: ANGIOMAX 250 MG VIAL IV ONE ×2 (12:40→12:50)
[2020-08-20] MEDS ORDERED: MIDAZOLAM HCL 1MG/1ML-2 ML VIAL ONE (12:41)
[2020-08-20] MEDS ORDERED: fentaNYL CITRATE 100 MCG/2 ML VL ONE (12:41)
[2020-08-20] MEDS ORDERED: SODIUM CHL 0.9% 0 ML ONE ×2 (12:41→12:51)
[2020-08-20] MEDS ORDERED: EPINEPHrine HCL 1 MG/10 ML SYRG ONE (12:50)
[2020-08-20] MEDS ORDERED: ATROPINE SULF 1 MG/10ml SYR ONE (12:50)
[2020-08-20] MEDS ORDERED: ADENOSINE 6 MG/2 ML INJ IV ONE (12:50)
[2020-08-20] MEDS ORDERED: niCARdipine 25 MG/10 ML VIAL IV ONE (12:50)
[2020-08-20] MEDS ORDERED: ACETAMINOPHEN 500 MG TAB PO PRN (15:00)
[2020-08-20] MEDS ORDERED: ONDANSETRON HCL 4 MG/2 ML VIAL IV PRN (15:00)
[2020-08-20] MEDS: TAMSULOSIN HYDROCHLORIDE 0.4 MG CAP PO SCH (17:20)
[2020-08-20] MEDS ORDERED: CLOPIDOGREL BISULFATE 75 MG TAB PO ONE (17:45)
[2020-08-20 20:20] VITALS: BP 110/67
--- NOTE | 2020-08-20 20:20 | NUR ---
Report received from Cath.Froylan Mcfadden. HUONG GRIJALVA brought to bed 202 following Cardiac catheterization, on cardiac cath tech and portable oxygen. Patient transferred to unit bed, connected to geological engineer #[id number] running SR 81, and oxygen. Catheterization site assessed for any bleeding, redness or swelling. Dressing dry and intact in place. Pedal pulses on affected leg assessed for positive tissue perfusion. Patient instructed on need to notify staff immediately if any pain, burning or wetness to site, and any lower back pain. Patient educated on new cardiac medications. All questions and concerns addressed, patient verbalized understanding of all education and instruction. See notes for any further. NOTE: Came per stretcher awake alert oriented,placed in the bed comfortably, vital signed checked, no distress.
[2020-08-20] MEDS: ATORVASTATIN 20 MG TAB PO SCH (21:46)
[2020-08-20] MEDS: LATANOPROST 0.005 % OPTH(EYE) SOL 2.5ML EACHEYE SCH (22:18)
[2020-08-20 23:22] LABS: Mean Corpuscular Hemoglobin 23.8 pg (28.0-32.0); Red Cell Distribution Width 17.1 % (11.8-14.3)
[2020-08-20 23:25] LABS: Hematocrit 31.5 % (41.0-53.0); Hemoglobin 9.6 g/dL (13.5-17.5); Mean Corpuscular Hgb Conc. 30.4 g/dL (32.0-36.0); Mean Corpuscular Volume 78.5 fL (80.0-100.0); Platelet Count (auto) 305 10^3/uL (140-450); Red Blood Cells 4.02 10^6/uL (4.5-5.90)
[2020-08-20 23:30] LABS: White Blood Cell 41.4 10^3/uL (4.4-10.8)
[2020-08-20 23:32] LABS: Basophils % (manual) 0 (0.0-2.0); Blast Cells 0; Eosinophils % (manual) 0 (0-7); Myelocytes % 0; Promyelocytes % 0; Reactive Lymphocytes 0
--- NOTE | 2020-08-20 23:45 | NUR ---
Informed Dr. Persaud for the patients WBC of 41.4 now and yesterday is 26.4, told tht the patient has Rocephin 1gram daily.
[2020-08-21 00:46] LABS: Band Neutrophils % (manual) 11; Lymphocytes % (manual) 3 (10.0-50.0); Metamyelocytes % 1; Monocytes % (manual) 3 (0-12)
[2020-08-21] MEDS: ALBUTEROL SULF 2.5 MG/0.5ML(0.5%) NEB SOLN NEB SCH ×2 (03:00→13:56)
[2020-08-21 05:54] VITALS: BP 114/71
[2020-08-21] MEDS: LEVOTHYROXINE SODIUM 50 MCG TAB PO SCH (06:11)
--- NOTE | 2020-08-21 07:22 | NUR ---
Report given to Judd Gan, patient is resting no distress.
--- NOTE | 2020-08-21 07:30 | NUR ---
Opening Shift Note Assuming care of patient at this time. Patient is awake and alert. Patient denies pain. Patient shows no signs or symptoms of distress or shortness of breath. Bed is locked and lowered with side rails up x2. Instructed patient on the plan of care for today and to call for assistance as needed. Call light within reach. Will continue to round hourly and as needed.
[2020-08-21 08:25] VITALS: BP 113/64
[2020-08-21] MEDS: Ezetimibe (Zetia) 10 MG TAB PO SCH (10:00)
[2020-08-21] MEDS: ASPirin-EC 81 mg tab PO SCH (10:02)
[2020-08-21] MEDS: PANTOPRAZOLE 40 MG TAB PO SCH (10:02)
[2020-08-21] MEDS: POTASSIUM CHL 10 Meq TABLET PO SCH (10:03)
[2020-08-21] MEDS: cefTRIAXone 1GM/50ML D5W 50 ML IV SCH (10:05)
[2020-08-21] MEDS: TIMOLOL MAL 0.5% OPTH(EYE) SOL 5ML EACHEYE SCH ×2 (10:05→22:00)
[2020-08-21] MEDS: BENAZEPRIL HCL 10 MG TAB PO SCH (10:32)
[2020-08-21] MEDS: MEGESTROL ACETATE 20 MG TAB PO SCH (10:32)
[2020-08-21 13:00] VITALS: BP 125/68
[2020-08-21 16:39] VITALS: BP 126/67
[2020-08-21] MEDS: TAMSULOSIN HYDROCHLORIDE 0.4 MG CAP PO SCH (18:39)
--- NOTE | 2020-08-21 19:36 | NUR ---
Closing Shift Note Patient resting in bed. No distress noted. Report given. Will endorse care to the night warehouse manager RN.
[2020-08-21 22:00] VITALS: BP 133/78
[2020-08-21] MEDS: LATANOPROST 0.005 % OPTH(EYE) SOL 2.5ML EACHEYE SCH (22:00)
[2020-08-21] MEDS: ATORVASTATIN 20 MG TAB PO SCH (23:05)
[2020-08-22 05:15] VITALS: BP 130/76
[2020-08-22] MEDS: LEVOTHYROXINE SODIUM 50 MCG TAB PO SCH (07:00)
--- NOTE | 2020-08-22 08:30 | NUR ---
Opening Note Assumed care of patient he is A & O x4, patient c/o pain to the R upper leg, he states that it started last night at 0300. Patient also reports some nausea. 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 Patient pulse to the right dorsalis pedis is 1+, weak, L foot is 2+. No SOB, no chest pain at this time. Will medicate per orders and continue to monitor.
[2020-08-22] MEDS: HYDROcodone-ACET 5/325MG TAB PO PRN ×3 (08:52→18:57)
[2020-08-22 09:00] VITALS: BP 117/69
[2020-08-22] MEDS: ALBUTEROL SULF 2.5 MG/0.5ML(0.5%) NEB SOLN NEB SCH ×2 (09:00→20:05)
--- NOTE | 2020-08-22 09:00 | NUR ---
Placed a page for Dr. Persaud.
--- NOTE | 2020-08-22 09:06 | NUR ---
Assessment Patient is a 85 year old male who is alert and oriented. Patient was recently discharge on 2019. Prior to admission patient lived home with his Berta and functioned independently. Patient informed me he is able to care for his own ADLs. Per patient he will return home to his prior living arrangements post discharge and family will transport him home. Patient has home oxygen. Patients PCP is Dr Persaud. Patient is receptive to receive home health services on this admission. Patient feels safe retuning home and has great family support. Informed patient he has a right to speak to a social services regarding all care. Informed patient he has a right to participate in any and all discharge planning. Patient does not have a POA and advanced directive. I have offered patient information on POA and advanced directives. Patient verbalized understanding and agreed to discharge plan. Patient will benefit from home health service for safety evaluation. Addendum: 08/22/20 at 0908 by KATI URIBE Amended: Links added.
[2020-08-22] MEDS ORDERED: VANCOMYCIN PER PHARMACY 0 MG IV SCH (09:45)
[2020-08-22] MEDS ORDERED: VANCOMYCIN 1GM/250ML 250 ML IV ONE (10:00)
[2020-08-22] MEDS: Ezetimibe (Zetia) 10 MG TAB PO SCH (10:00)
[2020-08-22] MEDS: MEGESTROL ACETATE 20 MG TAB PO SCH (11:05)
[2020-08-22] MEDS: FLUCONAZOLE 100 MG TAB PO SCH (11:05)
[2020-08-22] MEDS: POTASSIUM CHL 10 Meq TABLET PO SCH (11:07)
[2020-08-22] MEDS: ASPirin-EC 81 mg tab PO SCH (11:07)
[2020-08-22] MEDS: BENAZEPRIL HCL 10 MG TAB PO SCH (11:07)
[2020-08-22] MEDS: PANTOPRAZOLE 40 MG TAB PO SCH (11:08)
[2020-08-22] MEDS: TIMOLOL MAL 0.5% OPTH(EYE) SOL 5ML EACHEYE SCH ×2 (11:12→22:27)
[2020-08-22 11:42] LABS: Basophils # (auto) 0 10 ^3/uL (0-0.2); Basophils % (auto) 0.1 % (0.0-2.0); Eosinophils # (auto) 0 10 ^3/uL (0-0.8); Eosinophils % (auto) 0.1 % (0.0-7.0); Hematocrit 36.4 % (41.0-53.0); Hemoglobin 11.1 g/dL (13.5-17.5); Lymphocytes # (auto) 1.3 10 ^3/uL (0.4-5.4); Lymphocytes % (auto) 7.7 % (10.0-50.0); Mean Corpuscular Hemoglobin 23.8 pg (28.0-32.0); Mean Corpuscular Hgb Conc. 30.5 g/dL (32.0-36.0); Monocytes # (auto) 1.4 10 ^3/uL (0-1.3); Neutrophils # (auto) 14.2 10 ^3/uL (1.6-8.6); Neutrophils % (auto) 84.1 % (37.0-80.0); Nucleated Red Blood Cells % 0.1 %; Platelet Count (auto) 336 10^3/uL (140-450); Red Blood Cells 4.66 10^6/uL (4.5-5.90); Red Cell Distribution Width 16.9 % (11.8-14.3); White Blood Cell 16.9 10^3/uL (4.4-10.8)
[2020-08-22 13:00] VITALS: BP 129/76
[2020-08-22] MEDS: SODIUM CHLORIDE 0.9% 1,000 ML IV SCH ×2 (13:11→22:45)
[2020-08-22] MEDS: AZTREONAM 1GM INJ 1 GM in D5W 5% 50 ML IV SCH ×2 (14:42→22:21)
[2020-08-22 16:35] VITALS: BP 141/68
[2020-08-22] MEDS: TAMSULOSIN HYDROCHLORIDE 0.4 MG CAP PO SCH (18:19)
[2020-08-22] MEDS: LATANOPROST 0.005 % OPTH(EYE) SOL 2.5ML EACHEYE SCH (22:00)
[2020-08-22] MEDS: ATORVASTATIN 20 MG TAB PO SCH (22:00)
[2020-08-22 22:15] VITALS: BP 123/72
[2020-08-22] MEDS: HYDROcodone-ACET 10/325MG TAB PO PRN (22:50)
[2020-08-23] MEDS ORDERED: ALBUTEROL SULF 2.5 MG/0.5ML(0.5%) NEB SOLN NEB PRN (00:15)
[2020-08-23 05:29] LABS: Basophils # (auto) 0 10 ^3/uL (0-0.2); Basophils % (auto) 0.2 % (0.0-2.0); Eosinophils # (auto) 0.1 10 ^3/uL (0-0.8); Hemoglobin 9.3 g/dL (13.5-17.5); Lymphocytes # (auto) 1.4 10 ^3/uL (0.4-5.4); Monocytes # (auto) 1.1 10 ^3/uL (0-1.3); Nucleated Red Blood Cells % 0.1 %
[2020-08-23 05:32] LABS: Eosinophils % (auto) 0.6 % (0.0-7.0); Hematocrit 29.2 % (41.0-53.0); Lymphocytes % (auto) 11.3 % (10.0-50.0); Mean Corpuscular Hemoglobin 24.2 pg (28.0-32.0); Mean Corpuscular Hgb Conc. 31.8 g/dL (32.0-36.0); Mean Corpuscular Volume 76.2 fL (80.0-100.0); Monocytes % (auto) 9.5 % (0.0-12.0); Neutrophils # (auto) 9.4 10 ^3/uL (1.6-8.6); Neutrophils % (auto) 78.4 % (37.0-80.0); Platelet Count (auto) 301 10^3/uL (140-450); Red Blood Cells 3.84 10^6/uL (4.5-5.90); Red Cell Distribution Width 16.7 % (11.8-14.3); White Blood Cell 11.9 10^3/uL (4.4-10.8)
[2020-08-23 05:41] LABS: Albumin 1.9 g/dL (3.4-5.0); Calcium 8.1 mg/dL (8.5-10.1); Potassium 4.4 mmol/L (3.5-5.1)
[2020-08-23 05:44] LABS: BUN/Creatinine Ratio 23.2; Bilirubin, Total 0.4 mg/dL (0.2-1.0); Total Protein 6.1 g/dL (6.4-8.2)
[2020-08-23 06:00] VITALS: BP 103/70
[2020-08-23] MEDS: AZTREONAM 1GM INJ 1 GM in D5W 5% 50 ML IV SCH ×3 (06:10→22:42)
[2020-08-23] MEDS: LEVOTHYROXINE SODIUM 50 MCG TAB PO SCH (06:10)
--- NOTE | 2020-08-23 08:00 | NUR ---
Opening Note Assumed care of patient, he is A & O x4, sitting up eating breakfast independently. No s/s of distress, he informed me his R thigh is still bothering him and he has to use the walker to go the bathroom. POC discussed. Assisted patient to bathroom with use of walker. Patient returned to bed, with bed in lowest locked position, call light within reach. Will continue to monitor.
[2020-08-23 08:32] VITALS: BP 124/77
[2020-08-23] MEDS: ASPirin-EC 81 mg tab PO SCH (09:20)
[2020-08-23] MEDS: FLUCONAZOLE 100 MG TAB PO SCH (09:21)
[2020-08-23] MEDS: POTASSIUM CHL 10 Meq TABLET PO SCH (09:21)
[2020-08-23] MEDS: MEGESTROL ACETATE 20 MG TAB PO SCH (09:21)
[2020-08-23] MEDS: BENAZEPRIL HCL 10 MG TAB PO SCH (09:22)
[2020-08-23] MEDS: HYDROcodone-ACET 5/325MG TAB PO PRN (09:23)
[2020-08-23] MEDS: Ezetimibe (Zetia) 10 MG TAB PO SCH (09:24)
[2020-08-23] MEDS: TIMOLOL MAL 0.5% OPTH(EYE) SOL 5ML EACHEYE SCH ×2 (09:24→22:32)
[2020-08-23] MEDS: PANTOPRAZOLE 40 MG TAB PO SCH (09:28)
--- NOTE | 2020-08-23 10:53 | NUR ---
Nutrition Assessment Est energy needs 5949-2071 kcal (20-25 kcal/kg BW 74.5kg) Est protein needs 60-75g (0.8-1g/kg BW 74.5kg) Will monitor and reassess prn. Addendum: 08/23/20 at [address] Amended: Links added.
[2020-08-23 12:45] VITALS: BP 94/59
[2020-08-23] MEDS: VANCOMYCIN 1GM/250ML 250 ML IV SCH (13:14)
[2020-08-23] MEDS: SODIUM CHLORIDE 0.9% 1,000 ML IV SCH (13:14)
[2020-08-23] MEDS: HYDROcodone-ACET 10/325MG TAB PO PRN (16:56)
[2020-08-23 17:00] VITALS: BP 125/61
--- NOTE | 2020-08-23 17:30 | NUR ---
IV to left forearm leaking. Removed IV pressure dressing applied. New 22G started to the right wrist. Patient tolerated well.
[2020-08-23] MEDS: TAMSULOSIN HYDROCHLORIDE 0.4 MG CAP PO SCH (17:46)
[2020-08-23 19:45] VITALS: BP 117/65
--- NOTE | 2020-08-23 20:00 | NUR ---
Opening Shift Note Assumed care of patient, awake and alert. No S/S of distress/SOB or pain. Instructed on POC and to call for assist PRN, will continue to monitor for changes Q1hr and PRN.
[2020-08-23 22:00] VITALS: BP 117/65
[2020-08-23] MEDS: LATANOPROST 0.005 % OPTH(EYE) SOL 2.5ML EACHEYE SCH (22:32)
[2020-08-23] MEDS: ATORVASTATIN 20 MG TAB PO SCH (22:33)
[2020-08-24] MEDS: SODIUM CHLORIDE 0.9% 1,000 ML IV SCH ×2 (02:17→15:20)
[2020-08-24] MEDS: AZTREONAM 1GM INJ 1 GM in D5W 5% 50 ML IV SCH ×3 (06:56→21:42)
[2020-08-24] MEDS: LEVOTHYROXINE SODIUM 50 MCG TAB PO SCH (07:26)
--- NOTE | 2020-08-24 07:30 | NUR ---
Opening Shift Note: Assumed care of patient, awake and alert. No S/S of distress/SOB or pain. bed in lowest locked position, side rails up x 2, call light within reach. Patient instructed on POC and to call for assist PRN, will continue to monitor for changes Q1hr and PRN.
[2020-08-24] MEDS: POTASSIUM CHL 10 Meq TABLET PO SCH (08:51)
[2020-08-24] MEDS: PANTOPRAZOLE 40 MG TAB PO SCH (08:52)
[2020-08-24] MEDS: BENAZEPRIL HCL 10 MG TAB PO SCH (08:52)
[2020-08-24] MEDS: MEGESTROL ACETATE 20 MG TAB PO SCH (08:53)
[2020-08-24] MEDS: FLUCONAZOLE 100 MG TAB PO SCH (08:55)
[2020-08-24] MEDS: ASPirin-EC 81 mg tab PO SCH (08:55)
[2020-08-24] MEDS: Ezetimibe (Zetia) 10 MG TAB PO SCH (08:56)
[2020-08-24] MEDS: TIMOLOL MAL 0.5% OPTH(EYE) SOL 5ML EACHEYE SCH ×2 (08:56→21:41)
[2020-08-24 09:00] VITALS: BP 115/62
[2020-08-24 13:00] VITALS: BP 117/61
[2020-08-24] MEDS: VANCOMYCIN 1GM/250ML 250 ML IV SCH (13:03)
[2020-08-24 16:39] VITALS: BP 132/64
[2020-08-24] MEDS: TAMSULOSIN HYDROCHLORIDE 0.4 MG CAP PO SCH (18:08)
--- NOTE | 2020-08-24 18:25 | NUR ---
PT ASSESSED, NO SOB NOTED. SAT 95% ON RA
--- NOTE | 2020-08-24 18:49 | NUR ---
CLOSING NOTE: Patient resting in bed. No s/s of distress.
[2020-08-24 20:00] VITALS: BP 151/74
[2020-08-24 21:31] VITALS: BP 151/74
[2020-08-24] MEDS: LATANOPROST 0.005 % OPTH(EYE) SOL 2.5ML EACHEYE SCH (21:41)
[2020-08-24] MEDS: HYDROcodone-ACET 10/325MG TAB PO PRN (21:41)
[2020-08-24] MEDS: ATORVASTATIN 20 MG TAB PO SCH (21:42)
[2020-08-25] MEDS: SODIUM CHLORIDE 0.9% 1,000 ML IV SCH ×2 (04:40→16:45)
[2020-08-25 05:11] VITALS: BP 131/69
[2020-08-25] MEDS: AZTREONAM 1GM INJ 1 GM in D5W 5% 50 ML IV SCH ×3 (05:38→22:00)
[2020-08-25] MEDS: LEVOTHYROXINE SODIUM 50 MCG TAB PO SCH (06:36)
--- NOTE | 2020-08-25 07:24 | NUR ---
Opening Shift Note: Assumed care of patient, awake and alert. No S/S of distress/SOB or pain. Bed in lowest locked position, side rails up x 2, call light within reach. Patient Instructed on POC and to call for assist PRN, will continue to monitor for changes Q1hr and PRN.
[2020-08-25 09:00] VITALS: BP 142/75
[2020-08-25] MEDS: FLUCONAZOLE 100 MG TAB PO SCH (09:32)
[2020-08-25] MEDS: ASPirin-EC 81 mg tab PO SCH (09:32)
[2020-08-25] MEDS: TIMOLOL MAL 0.5% OPTH(EYE) SOL 5ML EACHEYE SCH ×2 (09:32→21:30)
[2020-08-25] MEDS: HYDROcodone-ACET 5/325MG TAB PO PRN ×2 (09:32→17:00)
[2020-08-25] MEDS: Ezetimibe (Zetia) 10 MG TAB PO SCH (09:32)
[2020-08-25] MEDS: PANTOPRAZOLE 40 MG TAB PO SCH (09:33)
[2020-08-25] MEDS: BENAZEPRIL HCL 10 MG TAB PO SCH (09:33)
[2020-08-25] MEDS: MEGESTROL ACETATE 20 MG TAB PO SCH (09:33)
[2020-08-25] MEDS: POTASSIUM CHL 10 Meq TABLET PO SCH (09:33)
[2020-08-25 12:42] VITALS: BP 106/53
[2020-08-25 17:00] VITALS: BP 117/61
[2020-08-25] MEDS ORDERED: VANCOMYCIN 1GM/250ML 250 ML IV SCH (17:00)
[2020-08-25] MEDS: TAMSULOSIN HYDROCHLORIDE 0.4 MG CAP PO SCH (17:00)
--- NOTE | 2020-08-25 17:58 | NUR ---
IV removal: right wrist IV DC'd with clean sterile technique, catheter fully intact. Pressure dressing applied to site. Patient tolerated well.
--- NOTE | 2020-08-25 17:59 | NUR ---
IV insertion: IV access obtained, via clean sterile technique by inserting 22 gauge catheter at left wrist after 1 attempt. IV secured properly. No trauma to site. Patient tolerated well.
--- NOTE | 2020-08-25 18:40 | NUR ---
RT NOTE: PT ASSESSED FOR PRN MED NEB TX, PT EATING DINNER WITH NO DISTRESS NOTED AT THIS TIME. NO TX INDICATED AT THIS TIME.
--- NOTE | 2020-08-25 18:50 | NUR ---
CLOSING NOTE: PATIENT RESTING IN BED. NO S/S OF DISTRESS.
--- NOTE | 2020-08-25 20:20 | NUR ---
Opening Shift Note Assumed care of patient, awake and alert. No S/S of distress/SOB or pain. Patient is on 2L NC.Instructed on POC and to call for assist PRN, will continue to monitor for changes Q1hr and PRN.
[2020-08-25] MEDS: ATORVASTATIN 20 MG TAB PO SCH (21:30)
[2020-08-25] MEDS: LATANOPROST 0.005 % OPTH(EYE) SOL 2.5ML EACHEYE SCH (21:30)
[2020-08-25 22:00] VITALS: BP 121/65
[2020-08-26 05:00] VITALS: BP 139/59
[2020-08-26] MEDS: AZTREONAM 1GM INJ 1 GM in D5W 5% 50 ML IV SCH (05:34)
[2020-08-26] MEDS: LEVOTHYROXINE SODIUM 50 MCG TAB PO SCH (07:03)
--- NOTE | 2020-08-26 07:35 | NUR ---
Opening Shift Note Assumed care of patient, awake and alert. No S/S of distress/SOB or pain. Instructed on POC and to call for assist PRN, will continue to monitor for changes Q1hr and PRN. Bed in lowest position top two side rails up, call light within reach.
--- NOTE | 2020-08-26 08:27 | NUR ---
CODE ASSIST CALLED PT WAS ON THE TOILET AND HE CALLED FOR ASSISTANCE. HE THEN HAD A CHANGE IN MENTAL STATUS, HE WAS RESPONSIVE THEN HE SLOWLY STARTED TO HAVE A CHANGE IN MENTAL STATUS, HE WOULD ANSWER BUT NOT LOOKING AT ME. CODE ASSIST CALLED. OBSTETRICAL TECH NORMA, RT, HOUSE SHIFT IN ROOM, TWO MALE EMPLOYEES PLACED PT ON WHEELCHAIR HE WAS NOT RESPONDING TO QUESTIONS ASKED AND PT COULDN'T STAND. PT WAS THEN PLACED IN BED BY MALE EMPLOYEES. PT NOW STARTED ANSWERING APPROPRIATELY. PT BLOOD SUGAR WAS 82. BP 91/60 HR 107-110. O2 SAT 93%. PT ON 6L O2. 08- DR RUSHING HAS BEEN PAGED TO MAKE AWARE OF CODE ASSIST AND HR IN THE 140-150'S. BP 110/70. PT IS RESPONSIVE NOW. 09- DR RUSHING HAS NOT ADDRESSED THE HR. EKG BEING DONE. PT IS NOW HAVING A CHANGE IN MENTAL STATUS AGAIN, HE IS RESPONDING HOWEVER, NOT LOOKING AT PERSON SPEAKING. BP ANTHONY OBSTETRICAL TECH IN ROOM. PUPILS ARE FIXED. CODE ASSIST CALLED AGAIN. PT WAS PLACED ON NONREBREATHER 02 SAT 94%. 09- TEAM FOR CODE ASSIST IN ROOM, RT, OBSTETRICAL TECH, DR KELLY, AND DESULPHURING OPERATOR. 09- DR RUSHING IS AWARE OF CURRENT HR AND DIFFICULTY BREATHING, WELL CHANGE IN MENTAL STATUS. HE IS ALSO AWARE OF BOTH CODE ASSISTS CALLED. 09- DR KELLY AND DESULPHURING OPERATOR IN CODE ASSIST DECIDED TO INTUBATE PT. 0935-PT IS NOW INTUBATED. Addendum: 08/26/20 at 1951 by Rahel Gonzalez RN RN DR RUSHING WANTED HEAD CT, AND CAROL LYON ALSO ORDERED IT.
[2020-08-26 09:23] LABS: White Blood Cell 9.7 10^3/uL (4.4-10.8)
[2020-08-26 09:25] LABS: Hematocrit 33.2 % (41.0-53.0); Hemoglobin 10.6 g/dL (13.5-17.5); Mean Corpuscular Hemoglobin 25.2 pg (28.0-32.0); Mean Corpuscular Volume 78.9 fL (80.0-100.0); Platelet Count (auto) 180 10^3/uL (140-450); Red Cell Distribution Width 17.3 % (11.8-14.3)
[2020-08-26] MEDS ORDERED: ROCURONIUM 10MG/ML 10ML VIAL IV ONE (09:26)
[2020-08-26] MEDS ORDERED: ETOMIDATE (2MG/ML) 20ML VIAL IV ONE (09:26)
[2020-08-26] MEDS ORDERED: SUCCINYLCHOLINE CHLORIDE 20 MG/ML 10ML VIAL IV ONE (09:26)
[2020-08-26 09:30] LABS: Basophils % (manual) 0 (0.0-2.0); Blast Cells 0; Eosinophils % (manual) 0 (0-7); Promyelocytes % 0; Reactive Lymphocytes 0
[2020-08-26 09:32] LABS: Calcium 8.5 mg/dL (8.5-10.1); Potassium 4.2 mmol/L (3.5-5.1)
[2020-08-26 09:35] LABS: Albumin 1.9 g/dL (3.4-5.0); BUN/Creatinine Ratio 14.4
[2020-08-26 09:38] LABS: Bilirubin, Total 0.6 mg/dL (0.2-1.0); Total Protein 7.1 g/dL (6.4-8.2)
[2020-08-26] MEDS ORDERED: MIDAZOLAM DRIP 50 mg/50mL 50 ML IV ONE (09:38)
[2020-08-26 09:41] LABS: Phosphorus 3.4 mg/dL (2.5-4.90)
[2020-08-26] MEDS ORDERED: MIDAZOLAM DRIP 50 mg/50mL 50 ML IV SCH (09:45)
[2020-08-26] MEDS ORDERED: HEPARIN DRIP/D5W 100UNITS/ML 250 ML IV SCH (09:45)
[2020-08-26] MEDS ORDERED: HEPARIN SODIUM (PORCINE) 5000 UNITS/ML 1ML VIAL IV ONE (09:45)
--- NOTE | 2020-08-26 09:50 | NUR ---
CODE BLUE PER [employer]S PROTOCOL. CAROL LYON AND DR US IN ROOM RUNNING CODE. PT WAS ALREADY INTUBATED PRIOR TO N[facility] CLIFTON.
--- NOTE | 2020-08-26 09:51 | NUR ---
DR US AND CAROL LYON ARE AWARE OF TROP 3.02.
[2020-08-26 10:11] LABS: Band Neutrophils % (manual) 3; Lymphocytes % (manual) 56 (10.0-50.0); Metamyelocytes % 2; Monocytes % (manual) 1 (0-12); Myelocytes % 5
[2020-08-26] MEDS ORDERED: ONDANSETRON HCL 4 MG/2 ML VIAL ONE (10:13)
[2020-08-26] MEDS ORDERED: PANTOPRAZOLE 40 MG/10 ML VIAL INJ IV ONE (10:13)
--- NOTE | 2020-08-26 10:17 | NUR ---
Called [facility] spoke with Gary, patient released case # [id number]
--- NOTE | 2020-08-26 10:20 | NUR ---
DIRECTOR OF SERVICES NOT CALLED PER CLINICAL PRACTITIONER, THE PREDICTIVE MAINTENANCE TECHNICIAN DIRECTOR OF SERVICES BUILDING ENERGY CONSULTANT (RUSH HERRERA), " NO NEED TO CALL THE DIRECTOR OF SERVICES THE MORTUARY IS TO REPORT BODY RELEASE " Addendum: 08/26/20 at 1112 by Beth Hair RN CALLED DIRECTOR OF SERVICES AND SPOKE WITH STELLA (DISPATCHER ) WHO WILL NOTIFY THE DIRECTOR OF SERVICES
--- NOTE | 2020-08-26 10:53 | NUR ---
FAMILY CALLED SPOKE WITH JAN, SHE WILL CALL BACK TO PROVIDE US WITH MORTUARY CHOICE,. PRIMARY RN JANES TOWNSEND
--- NOTE | 2020-08-26 11:19 | NUR ---
GLOBAL REGULATORY AFFAIRS MANAGER RELEASED BODY SPOKE WITH NATACHA DOUGLAS (IN CLASSROOM TUTOR), NO CASE NUMBER PROVIDED
--- NOTE | 2020-08-26 11:20 | NUR ---
PROVIDED WITH FAMILY CONTACT INFO TO UPDATE FAMILY
--- NOTE | 2020-08-26 14:40 | NUR ---
LOADER TECHNICIAN ANTHONY FOUND [employer] [address] AT [facility] PT FAMILY IS STILL DECIDING WHAT MORTUARY TO USE. PT FAMILY MEMBER ABDIAS WAS MADE AWARE AND AGREED TO HAVE PT SENT TO [facility] UNTIL THEY DECIDE WHO THEY WILL USE.
[2020-08-26] MEDS ORDERED: EPINEPHrine HCL 1 MG/10 ML SYRG IV ONE (15:05)
[2020-08-26] MEDS ORDERED: SODIUM BICARBONATE 8.4 % INJ 50ML VIAL IV ONE (15:05)
== END 2020-08-26 19:30 | DRG 871 ==
LOC: ER 08:49 → EDBD 08:49 → TELE 14:47 → TELE-CENTR 08-20 13:31
PROVIDERS: ADMIT Internal Medicine Cardiovascular Disease; ATTEND Internal Medicine Cardiovascular Disease
PROC: 4A023N7 Measurement of Cardiac Sampling and Pressure, Left Heart, Percutaneous Approach (ICD-10-PCS; principal; 2020-08-20)
PROC: B2111ZZ Fluoroscopy of Multiple Coronary Arteries using Low Osmolar Contrast (ICD-10-PCS; 2020-08-20)
PROC: B2151ZZ Fluoroscopy of Left Heart using Low Osmolar Contrast (ICD-10-PCS; 2020-08-20)
PROC: B41F1ZZ Fluoroscopy of Right Lower Extremity Arteries using Low Osmolar Contrast (ICD-10-PCS; 2020-08-20)
PROC: 5A12012 Performance of Cardiac Output, Single, Manual (ICD-10-PCS; 2020-08-26)
PROC: 0BH17EZ Insertion of Endotracheal Airway into Trachea, Via Natural or Artificial Opening (ICD-10-PCS; 2020-08-26)
PROC: 5A1935Z Respiratory Ventilation, Less than 24 Consecutive Hours (ICD-10-PCS; 2020-08-26)
DX: A41.9 Sepsis, unspecified organism (principal); I21.4 Non-ST elevation (NSTEMI) myocardial infarction; J96.00 Acute respiratory failure, unspecified whether with hypoxia or hypercapnia; N39.0 Urinary tract infection, site not specified; Z20.828 Contact with and (suspected) exposure to other viral communicable diseases; I25.10 Atherosclerotic heart disease of native coronary artery without angina pectoris; I73.9 Peripheral vascular disease, unspecified; I10 Essential (primary) hypertension; E89.0 Postprocedural hypothyroidism; Z86.19 Personal history of other infectious and parasitic diseases; Z95.5 Presence of coronary angioplasty implant and graft; Z87.01 Personal history of pneumonia (recurrent); E78.5 Hyperlipidemia, unspecified; D64.9 Anemia, unspecified; N19 Unspecified kidney failure; J44.9 Chronic obstructive pulmonary disease, unspecified; I46.9 Cardiac arrest, cause unspecified; I95.9 Hypotension, unspecified
CPT/HCPCS: 36415; 71045; 80053; 80202; 81001; 82565; 82962; 83605; 83880; 84100; 84484; 85007; 85025; 85027; 85379; 85610; 85730; 87040; 87081; 87086; 87426; 94640; 96365; 96372; 96375; 99152; 99153; C9113; G0378; J0153; J0330; J0696; J2250; J2405; J7060